=== PATIENT | female | born 1980 | race Caucasian/White ===

== ENCOUNTER 2019-01-08 18:08 | Inpatient (IN) | payer MEDICAID ==
[~2019-01-08] VITALS: Ht 160 cm; Wt 77.3 kg
[~2019-01-08 18:08] MED LIST: FERR27TA; PREN1TAB49
[2019-01-08 18:40] VITALS: Ht 160 cm; Wt 77.3 kg
[2019-01-08 18:41] VITALS: BP 111/58; PULSE 89; RESP 17
[2019-01-08] MEDS ORDERED: LACTATED RINGER'S 1,000 ML IV SCH (21:00)
[2019-01-08] MEDS ORDERED: GLUCOSE GEL 15 GRAM TUBE BUCCAL PRN (21:30)
[2019-01-08] MEDS ORDERED: GLUCAGON 1 MG INJ IM PRN (21:30)
[2019-01-08] MEDS ORDERED: DEXTROSE 50% 50 ML SYRINGE IV PRN ×2 (21:30)
[2019-01-08] MEDS ORDERED: GLUCOSE GEL 15 GRAM TUBE PO PRN ×2 (21:30)
--- NOTE | 2019-01-09 00:01 | TRIAGE ---
OB Triage Datetime Report Generated by CPN: 01/09/2019 00:01 Datetime: 01/08/2019 22:47 Stage of : Antepartum Monitor Mode: External US Comments: After several attempts to keep baby on the monitor. Datetime: 01/08/2019 22:14 Assessment Type: Admission Assessment Vaginal Bleeding: None Maternal Assessment Level of Consciousness: Fully Conscious DTR's/Clonus: DTRs 2+; No Clonus Headache: Denies Blurred Vision: No Respiratory Effort: Unlabored; Regular Rhythm; Equal Expansion Breath Sounds, Left: Clear and Equal Breath Sounds, Right: Clear and Equal Nausea/Vomiting: Denies RUQ Epigastric Pain: Denies Lower Extremities Edema: None Degree: None Upper Extremities Edema: None Degree: None Facial Edema: None Fall Risk Assessment History of Falling: (0) No Secondary Diagnosis: (0) No Ambulatory Aid: (0) Bedrest/Nurse Assist IV Therapy: (20) Yes Gait: (0) Normal/Bedrest/Immobile Mental Status: (0) Oriented to Own Ability Fall Score: 20 Fall Risk Score Definition: No Risk: No action required Labor Evaluation Frequency: 2.5-3 Duration (sec)2399: 40-70 Resting Tone [place]: Relaxed Heart Rate FHR Baseline Rate: 125 Variability: Moderate 6-25 bpm Accelerations: 15X15 Decelerations: None Category: Category I Pain Assessment Pain Scale: 2 Pain Presence: Intermittent Pain Type: Contraction Pain Location: Abdomen Pain Goal: 2 Datetime: 01/08/2019 22:10 Time of Arrival: 01/08/2019 21:45 EGA: 36.0 Arrived By: Ambulatory Arrived From: Home Datetime: 01/08/2019 21:38 Stage of : Antepartum Labor Evaluation Frequency: 2-4 Monitor Mode: External Duration (sec)2399: 50-70 Quality: Mild Pattern: Normal: <= 5 Contractions in 10 Minutes Resting Tone [place]: Relaxed Heart Rate FHR Baseline Rate: 135 Monitor Mode: External US Variability: Moderate 6-25 bpm Accelerations: 15X15 Decelerations: None Category: Category I Datetime: 01/08/2019 20:30 Labor Evaluation Frequency: IRREGULAR Monitor Mode: External Duration (sec)2399: 60-80 Quality: Mild Pattern: Normal: <= 5 Contractions in 10 Minutes Resting Tone [place]: Relaxed Heart Rate FHR Baseline Rate: 135 Monitor Mode: External US Variability: Moderate 6-25 bpm Accelerations: 15X15 Decelerations: None Category: Category I Datetime: 01/08/2019 19:31 Stage of : OB Triage Labor Evaluation Frequency: 2-7 Monitor Mode: External Duration (sec)2399: 30-60 Quality: Mild Pattern: Normal: <= 5 Contractions in 10 Minutes Resting Tone [place]: Relaxed Heart Rate FHR Baseline Rate: 135 Monitor Mode: External US Variability: Moderate 6-25 bpm Accelerations: 15X15 Decelerations: None Category: Category I Datetime: 01/08/2019 18:39 Assessment Type: Triage Time of Arrival: 01/08/2019 18:05 EGA: 36.0 Arrived By: Ambulatory Arrived From: Office Chief Complaint: a1dm, sent from md office for lab test and u/s Movement: Present Contractions: Denies/Absent Rupture of Membranes: Denies Vaginal Bleeding: None Vaginal Discharge: Denies Recent Sexual Intercouse: Denies Abdominal Trauma: Not Applicable Patient Complaints: None Time Provider Notified: 01/08/2019 20:10 Provider Notified: DR. JAMES Initial Plan: EFM, CALL OB Maternal Assessment Level of Consciousness: Fully Conscious DTR's/Clonus: DTRs 2+; No Clonus Headache: Denies Blurred Vision: No Respiratory Effort: Unlabored; Regular Rhythm; Equal Expansion Breath Sounds, Left: Clear and Equal Breath Sounds, Right: Clear and Equal Nausea/Vomiting: Denies RUQ Epigastric Pain: Denies Lower Extremities Edema: None Degree: None Upper Extremities Edema: None Degree: None Facial Edema: None Fall Risk Assessment History of Falling: (0) No Secondary Diagnosis: (0) No Ambulatory Aid: (0) Bedrest/Nurse Assist IV Therapy: (0) No Gait: (0) Normal/Bedrest/Immobile Mental Status: (0) Oriented to Own Ability Fall Score: 0 Fall Risk Score Definition: No Risk: No action required
[2019-01-09] MEDS: LACTATED RINGER'S 1,000 ML IV SCH ×4 (02:53→19:22)
[2019-01-09] MEDS ORDERED: ACCU-CHEK XX SCH (06:00)
[2019-01-09] MEDS: ACCU-CHEK XX SCH ×2 (07:30→19:45)
[2019-01-09] MEDS ORDERED: INSULIN ASPART [NOVOLOG] 3 ML PEN SC SCH (07:35)
[2019-01-09] MEDS ORDERED: PRENATAL VITAMIN PO SCH ×2 (09:00)
[2019-01-09] MEDS ORDERED: FERROUS SULFATE (EC) 325 MG TAB PO SCH (09:00)
--- NOTE | 2019-01-09 16:54 | HP ---
Date/Time of Note Date/Time of Note DATE: 01/09/19 TIME: 16:33 OB - History Hx of Present Free Text/Dictation Late entry note. Patient seen on 01/08/2019 39 years old -0-1-2 with single intrauterine at 36 weeks with OSVALDO of 02/05/2019 with diabetes. She was diagnosed early during current . 1 hour GTT done due to history of macrosomia. She did not have insurance and missed multiple visit after diagnosis of diabetes. [facility], referred to [facility] for further management of diabetes. She states good movement. She denies nausea, vomiting, shortness of breath, chest pain, heada veena, visual changes, vaginal bleeding or LOF. Risk factors: 1. Advanced maternal age 2. Diabetes 3. Previous delivery x1 4. History of macrosomia in previous (10 pounds) Chief Complaint: Diabetic management Estimated Due Date: February 05, 2019 : 4 Para: 2 Spontaneous : 1 Therapeutic : 0 Care: Limited Care Medical Complications: Other (Diabetes) Past Family/Social History * Past Medical, Surgical, Family and Obstetric Histories reviewed from chart. Blood Type: A+ Rubella: immune RPR/VDRL: Negative GBS Status: Unknown HBsAG: Negative OB Admission Exam Vital Signs Vital Signs Vital Signs Date Temp Pulse Resp B/P (MAP) Pulse Ox O2 O2 Flow FiO2 Time Delivery Rate 01/08/19 98.9 89 17 111/58 18:41 (75) Physical Exam HEENT: WNL Heart: Rhythm Normal Lungs: Clear Abdomen: WNL Extremities: Normal Reflexes: Normal Membranes: Intact Heart Rate: 140's Accelerations: Accelerations Present Decelerations: No Decelerations Varibility: Moderate Contractions on Admission: None Last 72 hourBlood Glucose Bedside Glucose - 72 Hours Test 01/09/19 00:51 01/09/19 07:29 01/09/19 11:54 01/09/19 13:06 Bedside 102 82 119 80 Glucose mg/dL (70-220) mg/dL (70-220) mg/dL (70-220) mg/dL (70-220) Test 01/09/19 15:36 Bedside 91 Glucose mg/dL (70-220) Last 72 hours Lab Results CBC & BMP 01/08/19 18:27 Liver Function Test 01/08/19 18:27 Alanine Aminotransferase (ALT/SGPT) 27 Albumin 3.5 Alkaline Phosphatase 112 Aspartate Amino Transf (AST/SGOT) 23 Direct Bilirubin 0.00 Total Protein 6.9 OB Assessment/Plan Other plan: 39 years old -0-1-2 with diabetes mellitus, AMA, previous delivery for macrosomia at 36 weeks - FHR: No sign of metabolic acidosis- Category I - Continuous EFM, toco - CBC, blood type and screen - CMP, uric acid, TSH, free T4 - 24-hour urine protein - Ultrasound for EFW and biophysical profile - Check fasting blood sugar and 2 hours postprandial - Insulin sliding scale with coverage of blood sugar with insulin if needed - Gr[employer] 7 [employer] 8 Teacher consult - Perinatology consult - Please see the orders - A+/Rubella: Immune - GBS: Done today, result is pending HIRAL JAMES Jan 09, 2019 16:46
--- NOTE | 2019-01-09 21:06 | DS ---
Date/Time of Note Date/Time of Note DATE: 01/09/19 TIME: 21:05 Obstetrical Discharge Record Final Diagnosis Final Diagnosis: not delivered Other Final Diagnosis 39 years old -0-1-2 with diabetes mellitus, AMA, previous delivery for macrosomia at 36 weeks and 1 day admitted for management of diabetes. She states good movement. FHR: No sign of metabolic acidosis- Category I . She has no uterine contractions. CBC, CMP, uric acid for having a baseline done which are within normal limits. She is collecting her urine for 24-hour urine protein and they creatinine clearance. Ultrasound performed, normal LARRY and biophysical profile 8 out of 8. Fasting blood sugar and 2-hour postprandial checked which were within normal limit. She was seen by simulation educator and senior manager quality assurance. The glucose meter, lancet and strips given to check FBS and 2 hours postprandial at home. If 24 hours urine protein is normal she may discharge home with follow-up with perinatologist, appropriate discharge instructions provided. I would like patient to have close follow-up with her primary physician or outpatient clinic in 1-2 days or return to triage for worsening symptoms or any other urgent concerns. Symptoms and sign of labor, preeclampsia, kick count discussed with patient, she voiced understanding. All of her questions answered. Condition on Discharge Physical Assessment Voiding: Yes Bowel Movement: Yes Patient Condition: Stable HIRAL JAMES Jan 09, 2019 21:06
== END 2019-01-09 22:48 | disposition home or self-care (01) | DRG 998 ==
LOC: OBT 18:08 → L-D 18:09 → OBT 20:55 → L-D 20:55
PROVIDERS: ADMIT Obstetrics & Gynecology; ATTEND Obstetrics & Gynecology
DX: O24.12 Pre-existing type 2 diabetes mellitus, in childbirth (principal); E11.9 Type 2 diabetes mellitus without complications; O09.523 Supervision of elderly multigravida, third trimester; Z3A.36 36 weeks gestation of pregnancy; Z37.0 Single live birth
CPT/HCPCS: 76815; 76818; 80053; 81001; 82575; 82962; 84156; 84443; 84560; 85025; 86850; 86900; 86901; G0463; J1815; J7120

== ENCOUNTER 2019-01-23 09:28 | Inpatient (IN) | payer MEDICAID ==
[~2019-01-23] VITALS: Ht 160 cm; Wt 77.2 kg
[~2019-01-23 09:28] MED LIST changes: +EPHEDrine 25 MG/5 ML SYG ONE; +OXYTOCIN 30 UNITS/LR 500 ML BAG IV ONE; +PHENYLephrine (100 MCG/ML) 10ML SYG ONE
[2019-01-23 09:49] VITALS: BP 114/69; PULSE 93; RESP 19; Ht 160 cm; Wt 77.2 kg
--- NOTE | 2019-01-23 11:44 | TRIAGE ---
OB Triage Datetime Report Generated by CPN: 01/23/2019 11:44 Datetime: 01/23/2019 11:24 Labor Evaluation Frequency: IRREGULAR Monitor Mode: External Duration (sec)2399: 60-100 Quality: Mild Pattern: Normal: <= 5 Contractions in 10 Minutes Resting Tone [place]: Relaxed Heart Rate FHR Baseline Rate: 130 Monitor Mode: External US Variability: Moderate 6-25 bpm Accelerations: 15X15 Decelerations: None Category: Category I Datetime: 01/23/2019 09:53 Stage of : OB Triage Assessment Type: Triage Maternal Assessment Level of Consciousness: Fully Conscious DTR's/Clonus: DTRs 2+; No Clonus Headache: Denies Blurred Vision: No Respiratory Effort: Unlabored; Regular Rhythm; Equal Expansion Breath Sounds, Left: Clear and Equal Breath Sounds, Right: Clear and Equal Nausea/Vomiting: Denies RUQ Epigastric Pain: Denies Lower Extremities Edema: None Degree: None Upper Extremities Edema: None Degree: None Facial Edema: None Fall Risk Assessment History of Falling: (0) No Secondary Diagnosis: (0) No Ambulatory Aid: (0) Bedrest/Nurse Assist IV Therapy: (0) No Gait: (0) Normal/Bedrest/Immobile Mental Status: (0) Oriented to Own Ability Fall Score: 0 Fall Risk Score Definition: No Risk: No action required Labor Evaluation Frequency: 0 Monitor Mode: External Pattern: Normal: <= 5 Contractions in 10 Minutes Resting Tone [place]: Relaxed Contraction Comments: NONE NOTED Heart Rate FHR Baseline Rate: 140 Monitor Mode: External US Variability: Moderate 6-25 bpm Accelerations: 15X15 Decelerations: None Category: Category I Datetime: 01/23/2019 09:52 Time of Arrival: 01/23/2019 09:24 EGA: 38.1 Arrived By: Ambulatory Arrived From: Home Chief Complaint: GDM Movement: Present Contractions: Denies/Absent Rupture of Membranes: Denies Vaginal Bleeding: None Vaginal Discharge: Denies Recent Sexual Intercouse: Denies Abdominal Trauma: Not Applicable Patient Complaints: Other Time Provider Notified: 01/23/2019 11:20 Initial Plan: NST BPP Datetime: 01/09/2019 22:36 Monitor Mode: External Pattern: Normal: <= 5 Contractions in 10 Minutes Heart Rate FHR Baseline Rate: 145 Monitor Mode: External US Variability: Moderate 6-25 bpm Accelerations: 15X15 Comments: unable to continuously monitor baby due to pt shifting in bed as she did not wish to be h ere longer and would be going home AMA. Datetime: 01/09/2019 22:00 Labor Evaluation Frequency: occasional Monitor Mode: External Duration (sec)2399: 40-60 Pattern: Normal: <= 5 Contractions in 10 Minutes Heart Rate FHR Baseline Rate: 140 Monitor Mode: External US Variability: Moderate 6-25 bpm Accelerations: 15X15 Decelerations: None Datetime: 01/09/2019 21:47 Monitor Mode: External US Datetime: 01/09/2019 21:00 Labor Evaluation Frequency: irregular Monitor Mode: External Duration (sec)2399: 50-90 Pattern: Normal: <= 5 Contractions in 10 Minutes Heart Rate FHR Baseline Rate: 140 Monitor Mode: External US Variability: Moderate 6-25 bpm Accelerations: 15X15 Decelerations: None Category: Category I Datetime: 01/09/2019 20:00 Labor Evaluation Frequency: IRREGULAR Monitor Mode: External Duration (sec)2399: 60-110 Pattern: Normal: <= 5 Contractions in 10 Minutes Heart Rate FHR Baseline Rate: 135 Monitor Mode: External US Variability: Moderate 6-25 bpm Accelerations: 15X15 Decelerations: None Category: Category I Datetime: 01/09/2019 19:44 Bedside Blood Glucose: 106 Datetime: 01/09/2019 19:40 Assessment Type: Ongoing Assessment Maternal Assessment Level of Consciousness: Fully Conscious DTR's/Clonus: DTRs 2+; No Clonus Headache: Denies Blurred Vision: No Respiratory Effort: Unlabored; Regular Rhythm; Equal Expansion Breath Sounds, Left: Clear and Equal Breath Sounds, Right: Clear and Equal Nausea/Vomiting: Denies RUQ Epigastric Pain: Denies Lower Extremities Edema: None Degree: None Upper Extremities Edema: None Degree: None Facial Edema: None Fall Risk Assessment History of Falling: (0) No Secondary Diagnosis: (0) No Ambulatory Aid: (0) Bedrest/Nurse Assist IV Therapy: (20) Yes Gait: (0) Normal/Bedrest/Immobile Mental Status: (0) Oriented to Own Ability Fall Score: 20 Fall Risk Score Definition: No Risk: No action required Pain Assessment Pain Scale: 0 Pain Presence: None/Denies Pain Type: N/A Datetime: 01/09/2019 19:21 Vaginal Exam Membrane Status: Intact Datetime: 01/09/2019 19:00 Labor Evaluation Frequency: 0 Monitor Mode: External Contraction Comments: pt states she does not feel any contractions. Heart Rate FHR Baseline Rate: 135 Monitor Mode: External US FHR Baseline Changes: No Baseline Change Variability: Moderate 6-25 bpm Accelerations: 15X15 Decelerations: None Category: Category I Datetime: 01/09/2019 18:00 Labor Evaluation Frequency: 0 Monitor Mode: External Heart Rate FHR Baseline Rate: 140 Monitor Mode: External US FHR Baseline Changes: No Baseline Change Variability: Moderate 6-25 bpm Accelerations: 15X15 Decelerations: None Category: Category I Datetime: 01/09/2019 17:49 Bedside Blood Glucose: 77 Datetime: 01/09/2019 17:00 Labor Evaluation Frequency: 2-7 Monitor Mode: External Duration (sec)2399: 50-60 Quality: Mild Pattern: Normal: <= 5 Contractions in 10 Minutes Resting Tone [place]: Relaxed Heart Rate FHR Baseline Rate: 135 Monitor Mode: External US FHR Baseline Changes: No Baseline Change Variability: Moderate 6-25 bpm Accelerations: 15X15 Decelerations: None Category: Category I Datetime: 01/09/2019 16:11 Comments: RN at bedside to find FHR. baby very active at this time. FHR audible at 140 bpm. Will co me back to pt room to adjust. Datetime: 01/09/2019 16:00 Labor Evaluation Frequency: 4-9 Monitor Mode: External Duration (sec)2399: 50-60 Quality: Mild Pattern: Normal: <= 5 Contractions in 10 Minutes Resting Tone [place]: Relaxed Heart Rate FHR Baseline Rate: 135 Monitor Mode: External US FHR Baseline Changes: No Baseline Change Variability: Moderate 6-25 bpm Accelerations: 15X15 Decelerations: None Category: Category I Pain Assessment Pain Scale: 0 Pain Presence: None/Denies Pain Type: N/A Pain Assessment Comments: pt does not feel pain or UCs Datetime: 01/09/2019 15:36 Bedside Blood Glucose: 91 Datetime: 01/09/2019 15:00 Labor Evaluation Frequency: 6-9 Monitor Mode: External Duration (sec)2399: 40-60 Quality: Mild Pattern: Normal: <= 5 Contractions in 10 Minutes Resting Tone [place]: Relaxed Heart Rate FHR Baseline Rate: 135 Monitor Mode: External US FHR Baseline Changes: No Baseline Change Variability: Moderate 6-25 bpm Accelerations: 15X15 Decelerations: None Category: Category I Pain Presence: None/Denies Pain Type: N/A Datetime: 01/09/2019 14:00 Labor Evaluation Frequency: 4-8 Monitor Mode: External Duration (sec)2399: 50-60 Quality: Mild Pattern: Normal: <= 5 Contractions in 10 Minutes Resting Tone [place]: Relaxed Heart Rate FHR Baseline Rate: 140 Monitor Mode: External US FHR Baseline Changes: No Baseline Change Variability: Moderate 6-25 bpm Accelerations: 15X15 Decelerations: None Category: Category I Pain Assessment Pain Scale: 0 Pain Presence: None/Denies Pain Type: N/A Pain Goal: 0 Datetime: 01/09/2019 13:05 Bedside Blood Glucose: 80 Datetime: 01/09/2019 13:00 Labor Evaluation Frequency: X2; irregular; q 14 min Monitor Mode: External Duration (sec)2399: 50-60 Quality: Mild Pattern: Normal: <= 5 Contractions in 10 Minutes Resting Tone [place]: Relaxed Heart Rate FHR Baseline Rate: 145 Monitor Mode: External US FHR Baseline Changes: No Baseline Change Variability: Moderate 6-25 bpm Accelerations: 15X15 Decelerations: None Category: Category I Pain Presence: None/Denies Pain Type: N/A Datetime: 01/09/2019 12:41 Temperature Route: Oral Datetime: 01/09/2019 12:00 Labor Evaluation Frequency: 0 Monitor Mode: External Contraction Comments: pt states she does noit feel any contractions. Heart Rate FHR Baseline Rate: 150 Monitor Mode: External US FHR Baseline Changes: No Baseline Change Variability: Moderate 6-25 bpm Accelerations: 15X15 Decelerations: None Category: Category I Datetime: 01/09/2019 11:00 Labor Evaluation Frequency: 4-6 Monitor Mode: External Duration (sec)2399: 60-70 Quality: Mild Pattern: Normal: <= 5 Contractions in 10 Minutes Resting Tone [place]: Relaxed Heart Rate FHR Baseline Rate: 135 Monitor Mode: External US FHR Baseline Changes: No Baseline Change Variability: Moderate 6-25 bpm Accelerations: 15X15 Decelerations: None Category: Category I Pain Presence: None/Denies Pain Type: N/A Datetime: 01/09/2019 10:00 Labor Evaluation Frequency: 5-6 Monitor Mode: External Duration (sec)2399: 70-90 Quality: Mild Pattern: Normal: <= 5 Contractions in 10 Minutes Resting Tone [place]: Relaxed Heart Rate FHR Baseline Rate: 130 Monitor Mode: External US FHR Baseline Changes: No Baseline Change Variability: Moderate 6-25 bpm Accelerations: 15X15 Decelerations: None Category: Category I Pain Presence: None/Denies Pain Type: N/A Datetime: 01/09/2019 09:00 Labor Evaluation Frequency: 3-6.5 Monitor Mode: External Duration (sec)2399: 60-80 Quality: Mild Pattern: Normal: <= 5 Contractions in 10 Minutes Resting Tone [place]: Relaxed Contraction Comments: pt does not feel her contractions Heart Rate FHR Baseline Rate: 135 Monitor Mode: External US FHR Baseline Changes: No Baseline Change Variability: Moderate 6-25 bpm Accelerations: 15X15 Decelerations: None Category: Category I Pain Assessment Pain Scale: 0 Pain Presence: None/Denies Pain Type: N/A Datetime: 01/09/2019 08:00 Maternal Assessment Level of Consciousness: Fully Conscious Headache: Denies Blurred Vision: No Breath Sounds, Left: Clear and Equal Breath Sounds, Right: Clear and Equal RUQ Epigastric Pain: Denies Facial Edema: None Labor Evaluation Frequency: 2-7 Monitor Mode: External Duration (sec)2399: 80-110 Quality: Mild Pattern: Normal: <= 5 Contractions in 10 Minutes Resting Tone [place]: Relaxed Contraction Comments: pt states she does not feel any pain or contractions. pt states positive feta l movement. Heart Rate FHR Baseline Rate: 130 Monitor Mode: External US FHR Baseline Changes: No Baseline Change Variability: Moderate 6-25 bpm Accelerations: 15X15 Decelerations: None Category: Category I Pain Assessment Pain Scale: 0 Pain Presence: None/Denies Pain Type: N/A Datetime: 01/09/2019 07:30 Assessment Type: Ongoing Assessment Maternal Assessment Level of Consciousness: Fully Conscious DTR's/Clonus: DTRs 2+; No Clonus Headache: Denies Blurred Vision: No Respiratory Effort: Unlabored; Regular Rhythm; Equal Expansion Breath Sounds, Left: Clear and Equal Breath Sounds, Right: Clear and Equal Nausea/Vomiting: Denies RUQ Epigastric Pain: Denies Lower Extremities Edema: None Upper Extremities Edema: None Facial Edema: None Bedside Blood Glucose: 82 Fall Risk Assessment History of Falling: (0) No Secondary Diagnosis: (0) No Ambulatory Aid: (0) Bedrest/Nurse Assist IV Therapy: (20) Yes Gait: (0) Normal/Bedrest/Immobile Mental Status: (0) Oriented to Own Ability Fall Score: 20 Fall Risk Score Definition: No Risk: No action required Datetime: 01/09/2019 06:54 Stage of : Antepartum Labor Evaluation Frequency: 2-5 Monitor Mode: External Duration (sec)2399: 50-80 Resting Tone [place]: Relaxed Heart Rate FHR Baseline Rate: 125 Monitor Mode: External US Variability: Moderate 6-25 bpm Accelerations: 15X15 Decelerations: None Category: Category I Pain Assessment Pain Scale: 0 Pain Presence: None/Denies Pain Type: N/A Pain Relief Measures: Comfort Measures Datetime: 01/09/2019 06:14 Stage of : Antepartum Labor Evaluation Frequency: 2-5 Monitor Mode: External Duration (sec)2399: 50-120 Resting Tone [place]: Relaxed Heart Rate FHR Baseline Rate: 120 Monitor Mode: External US Variability: Moderate 6-25 bpm Accelerations: 15X15 Decelerations: None Category: Category I Pain Presence: None/Denies Pain Type: N/A Pain Relief Measures: Comfort Measures Datetime: 01/09/2019 05:17 Stage of : Antepartum Labor Evaluation Frequency: 2-6 Monitor Mode: External Pattern: Normal: <= 5 Contractions in 10 Minutes Resting Tone [place]: Relaxed Heart Rate FHR Baseline Rate: 120 Monitor Mode: External US Variability: Moderate 6-25 bpm Accelerations: 15X15 Decelerations: None Category: Category I Pain Assessment Pain Scale: 0 Pain Presence: Intermittent Pain Type: Contraction Pain Location: Abdomen Pain Relief Measures: Comfort Measures Datetime: 01/09/2019 04:13 Stage of : Antepartum Labor Evaluation Frequency: 3-6 Monitor Mode: External Duration (sec)2399: 60-120 Resting Tone [place]: Relaxed Heart Rate FHR Baseline Rate: 120 Monitor Mode: External US Variability: Moderate 6-25 bpm Accelerations: 15X15 Decelerations: None Category: Category I Pain Assessment Pain Scale: 0 Pain Presence: None/Denies Pain Type: N/A Pain Relief Measures: Comfort Measures Datetime: 01/09/2019 03:30 Stage of : Antepartum Comments: Repeated attempts to keep baby on monitor. Audible movement. Datetime: 01/09/2019 03:15 Stage of : Antepartum Labor Evaluation Frequency: Occasional Monitor Mode: External Resting Tone [place]: Relaxed Heart Rate FHR Baseline Rate: 130 Monitor Mode: External US Variability: Moderate 6-25 bpm Accelerations: 15X15 Decelerations: None Category: Category I Comments: Repeated attempts to keep baby on the monitor. Audible movement. Pain Assessment Pain Scale: 0 Pain Presence: None/Denies Pain Type: N/A Pain Relief Measures: Comfort Measures Datetime: 01/09/2019 02:15 Stage of : Antepartum Labor Evaluation Frequency: None Monitor Mode: External Resting Tone [place]: Relaxed Heart Rate FHR Baseline Rate: 125 Monitor Mode: External US Variability: Moderate 6-25 bpm Accelerations: 15X15 Decelerations: None Category: Category I Pain Presence: None/Denies Pain Type: N/A Pain Relief Measures: Comfort Measures Datetime: 01/09/2019 01:15 Stage of : Antepartum Labor Evaluation Frequency: None Monitor Mode: External Resting Tone [place]: Relaxed Heart Rate FHR Baseline Rate: 125 Monitor Mode: External US Variability: Moderate 6-25 bpm Accelerations: 15X15 Decelerations: None Category: Category I Datetime: 01/09/2019 00:51 Bedside Blood Glucose: 102 Datetime: 01/09/2019 00:13 Stage of : Antepartum Monitor Mode: External Resting Tone [place]: Relaxed Contraction Comments: Difficult to assess due to patient position Heart Rate FHR Baseline Rate: 120 Monitor Mode: External US Variability: Moderate 6-25 bpm Accelerations: 15X15 Decelerations: None Category: Category I Pain Assessment Pain Scale: 0 Pain Presence: None/Denies Pain Type: N/A Pain Relief Measures: Comfort Measures Datetime: 01/08/2019 23:15 Stage of : Antepartum Monitor Mode: External Resting Tone [place]: Relaxed Contraction Comments: Difficult to assess due to patient position Heart Rate FHR Baseline Rate: 120 Monitor Mode: External US Variability: Moderate 6-25 bpm Accelerations: 15X15 Decelerations: None Category: Category I Comments: Temporary loss of contact with FHTs due to patient position while eating. Pain Assessment Pain Scale: 0 Pain Presence: None/Denies Pain Type: N/A Pain Relief Measures: Comfort Measures Datetime: 01/08/2019 22:14 Fall Score: 20 Fall Risk Score Definition: No Risk: No action required Datetime: 01/08/2019 22:13 Stage of : Antepartum Labor Evaluation Frequency: 2-4 Monitor Mode: External Duration (sec)2399: 40-60 Resting Tone [place]: Relaxed Heart Rate FHR Baseline Rate: 120 Monitor Mode: External US Variability: Moderate 6-25 bpm Accelerations: 15X15 Decelerations: None Category: Category I Pain Assessment Pain Scale: 0 Pain Presence: None/Denies Pain Type: N/A Pain Relief Measures: Comfort Measures Datetime: 01/08/2019 22:10 EGA: 36.0 Datetime: 01/08/2019 18:39 EGA: 36.0 Fall Score: 0 Fall Risk Score Definition: No Risk: No action required
[2019-01-23] MEDS ORDERED: LACTATED RINGER'S 1,000 ML IV SCH (13:31)
[2019-01-23] MEDS ORDERED: CEFAZOLIN 2 GM/50 ML (PMX) 50 ML IVPB SCH (14:00)
[2019-01-23] MEDS ORDERED: OXYTOCIN 30 UNITS/LR 500 ML IV PRN ×2 (14:00→23:30)
[2019-01-23] MEDS ORDERED: METHYLERGONOVINE 0.2 MG INJ IM PRN ×2 (14:00→23:30)
[2019-01-23] MEDS ORDERED: MISOPROSTOL 200 MCG TAB PR PRN ×2 (14:00→23:30)
[2019-01-23] MEDS ORDERED: CARBOPROST 250 MCG INJ IM PRN ×2 (14:00→23:30)
[2019-01-23] MEDS ORDERED: ONDANSETRON 4 MG INJ IV STA (15:10)
[2019-01-23] MEDS ORDERED: METOCLOPRAMIDE 10 MG INJ IV ONE (15:30)
[2019-01-23] MEDS ORDERED: morphine SULFATE/PF (10 MG/10 ML) INJ ONE (16:48)
--- NOTE | 2019-01-23 16:55 | HP ---
Date/Time of Note Date/Time of Note DATE: 01/23/19 TIME: 16:48 OB - History Hx of Present Free Text/Dictation 29 years old 4 para 2-0-0-2 with previous delivery at 38 weeks and 1 day presents presents for NST for A1 gestational diabetes and advanced maternal age. She states good movement. She denies nausea, vomiting, shortness of breath, chest pain, headache, visual changes, vaginal bleeding or LOF. Risk factors: -A1 gestational diabetes -Advanced maternal age Chief Complaint: She presents for NST and biophysical profile Estimated Due Date: February 05, 2019 : 4 Para: 2 Spontaneous : 1 Therapeutic : 0 Care: Limited Care Ultrasounds: Normal mid trimester US Obstetrical Complications: Gestational Diabetes Medical Complications: None Past Family/Social History * Past Medical, Surgical, Family and Obstetric Histories reviewed from chart. Blood Type: A+ Rubella: immune RPR/VDRL: Negative GBS Status: Negative HBsAG: Negative OB Admission Exam Vital Signs Vital Signs Vital Signs Date Temp Pulse Resp B/P (MAP) Pulse Ox O2 O2 Flow FiO2 Time Delivery Rate 01/23/19 98.7 93 19 114/69 Room Air 09:49 (84) Physical Exam HEENT: WNL Heart: Rhythm Normal Lungs: Clear Abdomen: WNL Extremities: Normal Membranes: Intact Heart Rate: 130's Accelerations: Accelerations Present Decelerations: No Decelerations Varibility: Moderate Contractions on Admission: < 5 Minutes Apart Intensity: Mild Last 72 hourBlood Glucose Bedside Glucose - 72 Hours Test 01/23/19 10:55 Bedside Glucose 84 mg/dL (70-220) Last 72 hours Lab Results CBC & BMP 01/23/19 12:40 OB Assessment/Plan Other plan: 39 years old -0-1-2 with advanced maternal age, A1 gestational diabetes, uterine leiomyoma and transfers presentation at 38 weeks and 1 day in labor - FHR: No sign of metabolic acidosis- Category I - Continuous EFM, toco - CBC, blood type and screen - Please see the orders - A+/Rubella: Immune - GBS: Negative The risk of delivery including but not limited to bleeding, infection, injury to other organs (bowel, bladder, ureter, vessels, nerves), injury to fetus, blood transfusion, blood transfusion related infection, risk of anesthesia, adhesion, needs for future , removal of uterus or any other indicated surgery was discussed with the patient and her family. She expressed understanding. All of her questions were answered. She signed the informed consent. PHYSICIAN'S VERIFICATION OF INFORMED CONSENT The patient and her where counseled regarding the procedure, its indications, risks, potential complications and alternatives and any questions were answered. Consent was obtained. PLANNED PROCEDURE/TREATMENT: delivery with possible using vacuum/forceps and any other indicated surgery PHYSICIAN'S VERIFICATION OF INFORMED CONSENT FOR BLOOD TRANSFUSION: There is a reasonable possibility that blood transfusion will be necessary as a result of the patient's procedure. I have discussed the following with the patient/patient's legal medical detail representative: An explanation of the benefits and risks of the transfusion of blood or blood products and the possible alternatives. All questions have been answered to the patient's satisfaction. INFORMED CONSENT:The patient has been informed of: The nature of the proposed care, treatment, services, medications, interventions or procedures. Potential benefits, risks or side effects, including potential problems related to recuperation. The likelihood of achieving care treatment and service goals. Reasonable alternatives to the proposed care, treatment and service. The relevant risks, benefits and side effects related to alternatives, including the possible results of not receiving care, treatment and services. When indicated, any limitations on the confidentiality of information learned from or about the patient. If appropriate, the risks, benefits and alternatives of the drugs to be used for sedation/analgesia including moderate sedation. If appropriate, patient has been provided information on the risks, benefits and alternatives to the transfusion of blood and/or blood products. If appropriate, patient has been provided information regarding the [place] [employer] Blood Act. HIRAL JAMES January 23, 2019 16:55
[2019-01-23] MEDS ORDERED: FENTAnyl 50 MCG/ML VIAL ONE ×3 (17:22→17:41)
[2019-01-23] MEDS: OXYTOCIN 30 UNITS/LR 500 ML IV SCH ×2 (18:25→22:57)
--- NOTE | 2019-01-23 18:50 | PREAC ---
Date/Time of Note Date/Time of Note DATE: 01/23/19 TIME: 18:49 Anesthesia Eval and Record Evaluation Time Pre-Procedure Interview DATE: 01/23/19 TIME: 18:49 Age 39 Sex female NPO: 8 hrs Preoperative diagnosis Planned procedure repeat c/s Past Medical History Past Medical History: None Surgery & Anesthesia Issues No known issue Meds Anticoagulation: No Beta David within 24 hr: No Reason Beta David not given: Pt. not on B-David Reported Medications Ferrous Sulfate (Iron) 1 Tab Tablet 09/07/10 Vits W-Ca,Fe,Fa(<1MG) () 1 Tab Tablet 09/07/10 Current Medications Lactated Ringer's 1,000 ml @ 125 mls/hr Q8H IV Last administered on 01/23/19at 13:59; Admin Dose 125 MLS/HR; Start 01/23/19 at 13:31 Cefazolin Sodium/ Dextrose 50 ml @ 100 mls/hr ONCE IVPB ; Start 01/23/19 at 14:00 Oxytocin/Lactated Ringer's 500 ml @ 125 mls/hr POST IV Last administered on 01/23/19at 18:25; Admin Dose 125 MLS/HR; Start 01/23/19 at 14:00 Oxytocin/Lactated Ringer's 500 ml @ 0 mls/hr ONCE PRN IV .VAGINAL BLEEDING; Start 01/23/19 at 14:00 Methylergonovine Maleate (Methergine) 0.2 mg ONCE PRN IM .VAGINAL BLEEDING; Start 01/23/19 at 14:00 Carboprost Tromethamine (Hemabate) 250 mcg ONCE PRN IM .VAGINAL BLEEDING; Start 01/23/19 at 14:00 Misoprostol (Cytotec) 1,000 mcg ONCE PRN SC .VAGINAL BLEEDING; Start 01/23/19 at 14:00 Meds reviewed: Yes Allergies Coded Allergies: No Known Allergies (Verified Allergy, Mild, 11/25/13) No Known Drug Allergies (Unverified Allergy, Unknown, 11/26/13) Allergies Reviewed: Yes Labs/Studies Labs Reviewed: Reviewed by anesthesiologist Result Diagram: 01/23/19 1240 Laboratory Tests 01/23/19 12:40 Blood Bank Test 01/23/19 12:40 Antibody Screen NEGATIVE Blood Type A POSITIVE Rh Immune Globulin Candidate NO test: Positive Pre-procedure Exam Last vitals Vital Signs Date Temp Pulse Resp B/P (MAP) Pulse Ox O2 O2 Flow FiO2 Time Delivery Rate 01/23/19 98.7 93 19 114/69 Room Air 09:49 (84) Airway: Adequate mouth opening, Adequate thyromental dist Mallampati: Mallampati II Teeth: Normal Lung: Normal Heart: Normal ASA Physical Status ASA physical status: 2 Emergency: None Planned Anesthetic Neuraxial: Spinal Planned Pain Management Sub-arachniod narcotics Pre-operative Attestations Prior to commencing anesthesia and surgery, the patient was re-evaluated, there was verification of: *The patient's identity *The results of appropriate recent lab work and preoperative vital signs *The above evaluation not changing prior to induction *Anesthetic plan, risk benefits, alternative and complications discussed with patient/family; questions answered; patient/family understands, accepts and wishes to proceed. MILES COLEMAN January 23, 2019 18:50
[2019-01-23] MEDS ORDERED: KETOROLAC 30 MG INJ IV PRN (19:00)
[2019-01-23] MEDS ORDERED: METOCLOPRAMIDE 10 MG INJ IV PRN (19:00)
[2019-01-23] MEDS ORDERED: ALBUTEROL 0.083% (NEB) 2.5 MG/3 ML AMP HHN PRN (19:00)
[2019-01-23] MEDS ORDERED: FENTAnyl 50 MCG/ML VIAL IV PRN ×2 (19:00)
[2019-01-23] MEDS ORDERED: NALOXONE (0.4 MG/ML) INJ IV PRN (19:00)
[2019-01-23] MEDS ORDERED: ONDANSETRON 4 MG INJ IV PRN ×2 (19:00)
[2019-01-23] MEDS ORDERED: HYDROmorphONE 1 MG/5 ML IV SYRINGE IV PRN ×3 (19:00)
[2019-01-23] MEDS ORDERED: DIPHENHYDRAMINE 50 MG INJ IV PRN ×2 (19:00)
[2019-01-23] MEDS ORDERED: HYDROmorphONE 0.5 MG/0.5 ML SYG IV PRN ×2 (19:00)
--- NOTE | 2019-01-23 19:41 | PAC ---
Date/Time of Note Date/Time of Note DATE: 01/23/19 TIME: 19:41 Post-Anesthesia Notes Post-Anesthesia Note Last documented vital signs Vital Signs Date Temp Pulse Resp B/P (MAP) Pulse Ox O2 O2 Flow FiO2 Time Delivery Rate 01/23/19 98.7 93 19 114/69 Room Air 09:49 (84) Activity: WNL Respiratory function: WNL Cardiovascular function: WNL Mental status: Baseline Pain reasonably controlled: Yes Hydration appropriate: Yes Nausea/Vomiting absent: Yes MILES COLEMAN January 23, 2019 19:41
[2019-01-23] MEDS: KETOROLAC 30 MG INJ IV PRN (20:46)
[2019-01-23 23:00] VITALS: BP 124/60; PULSE 54; RESP 19
--- NOTE | 2019-01-23 23:12 | OPR ---
Operative Report Planned Procedure Procedure date January 23, 2019 Procedure(s) 1. Repeat low transverse delivery 2. Lysis of adhesion Performed by see signature line Gas Brazer: RYAN VALENZUELA MD Anesthesiologist: MILES COLEMAN Pre-procedure diagnosis 39 years old -0-1-2 with advanced maternal age, A1 gestational diabetes, uterine leiomyoma and transverse presentation at 38 weeks and 1 day in labor [id number] Anesthesia Type: [id number] spinal Post-Procedure Post-procedure diagnosis 39 years old -0-1-2 with advanced maternal age, A1 gestational diabetes, multiple uterine leiomyoma as noted at finding and transverse presentation at 38 weeks and 1 day in labor Findings 1. Enlarged uterus with multiple uterine leiomyoma. There was one 5x6 cm intramural uterine leiomyoma adjacent to the right side of lower uterine segment. There was is a 3 x 4 cm subserosal fundal uterine leiomyoma. There was two 2x3 and 3x4 cm intramural uterine leiomyoma posterior posterior of uterus. There were three 1x1 cm uterine leiomyoma on posterior wall of uterus 2. Normal uterus, fallopian tubes and ovaries 2. Viable male in transverse presentation. 8 at one minute and 9 in 5 minutes. Weight: 8 pounds 3 ounces - 3725 g. Time of delivery: 17:21 3. Placenta with three vessel cord 4. Amniotic fluid - Clear Estimated Blood Loss: 600 - 700 mls Specimen(s) none Grafts/Implant(s) none Complication(s) none Pt Condition post procedure: stable Disposition: PACU Procedure Description INDICATION AND HISTORY: A 39 years old -0-1-2 with advanced maternal age, A1 gestational diabetes, uterine leiomyoma and transverse presentation at 38 weeks and 1 day in labor. The risk of delivery including but not limited to bleeding, infection, injury to other organs (bowel, bladder, ureter, vessels, nerves), injury to fetus, blood transfusion, blood transfusion related infection, risk of anesthesia, adhesion, needs for future , removal of uterus or any other indicated surgery was discussed with the patient and her family. She expressed understanding. All of her questions were answered. She signed the informed consent. DESCRIPTION OF OPERATION: The patient was taken to the operating room, where she was identified and the procedure was verified. The patient received two gram of Ancef 30 minutes prior to surgery. Spinal anesthesia was placed. The patient placed in the dorsal supine position with a left tilt. The heart rate was 134 bpm. The patient was then prepped and draped in the normal sterile fashion. A Pfannenstiel skin incision was made and carried down to the fascia with Bovie. The fascia was incised in the midline and the fascial incision was carried laterally with Chin scissors. The superior portion of the fascial incision was then grasped with Mik clamps and tented up and dissected off the underlying rectus muscle with sharp dissection. The lower portion of the fascial incision was then made in a similar fashion. The rectus muscle was and the peritoneum was entered. The peritoneal incision was then stretched and a bladder blade was inserted. Then, an incision was made in the lower uterine segment in a transverse fashion with a knife and extended bluntly. The was in transverse presentation, delivered atraumatically in double footling breech presentation with the above findings. The umbilical cord was clamped and cut. The neonatology resuscitation team was present and the baby was handed to them. A cord blood sample was obtained for further evaluation. The placenta and membrane, which appeared normal were Removed. The uterus was exteriorized and cleared of all clot and debris. The uterus was then closed in a two layer fashion with 0-Monocryl. As noted above there was a 6 x 7 cm intramural leiomyoma adjacent to the right side of lower uterine segment. At the time of closure, hemostasis was noted. Fibrillar placed under the incision. Minimal bleeding from the fundal submucosal fibroid controlled with cautery. Surgicel placed on his fibroid. Then the gutters were irrigated. The peritoneum was reapproximated with 3-0 Vicryl. The muscle was reapproximated with 3-0 Vicryl. The fascia was approximated with 0-Vicryl in a running fashion. *The subcutaneous tissue was re approximated with 3-0 vicryl. The skin was closed with 4-0 Monocryl. All instruments, sponges and needle counts were correct x3. The patient tolerated the procedure well. She transferred to the recovery room in stable condition. HIRAL JAMES January 23, 2019 23:06
[2019-01-23] MEDS ORDERED: OXYTOCIN 30 UNITS/LR 500 ML IV SCH (23:28)
[2019-01-23] MEDS ORDERED: LANOLIN HPA 1 PKT TOP PRN (23:30)
[2019-01-23] MEDS ORDERED: METHYLERGONOVINE 0.2 MG TAB PO PRN (23:30)
[2019-01-24] MEDS: DEXTROSE 5%-LR 1,000 ML IV SCH ×3 (02:39→15:28)
[2019-01-24 04:00] VITALS: BP 110/58; PULSE 60; RESP 19
[2019-01-24 08:45] VITALS: BP 114/63; PULSE 73; RESP 18
[2019-01-24] MEDS: KETOROLAC 30 MG INJ IV PRN ×2 (10:47→16:36)
[2019-01-24] MEDS: SENNA/DOCUSATE NA (8.6MG/50MG) TAB PO SCH ×2 (10:48→22:58)
[2019-01-24] MEDS ORDERED: DIPHTH/TET/ACEL PERTUSS (ADULT) 0.5 ML VIAL IM* ONE (11:00)
[2019-01-24 12:15] VITALS: BP 102/60; PULSE 72; RESP 16
[2019-01-24 16:38] VITALS: BP 114/61; PULSE 79; RESP 17
--- NOTE | 2019-01-24 17:44 | PN ---
Date/Time of Note Date/Time of Note DATE: 01/24/19 TIME: 17:42 OB Subjective Subjective Subjective Patient denies any nausea vomiting. Has not been out of the bed yet. Asencio is a still in. SCDs around. Reports pain in the incision. Breast- feeding. OB Objective Objective Objective Appearance: Alert and oriented x4 does not appear to be in any acute distress Abdomen: Soft, fundus firm and palpable at the level of umbilicus. Appropriate tenderness in the incision noted Extremities: No calf tenderness, no click no edema no cord palpable Breast: No evidence of mastitis or fissure or engorgement CBC & BMP 01/23/19 12:40 01/24/19 04:48 OB Assessment/Plan Other Assessment: Status post primary low transverse section Postop day #1 Mild anemia, postop, asymptomatic Routine postop care Ambulation, Start iron when passed flatus KARI SANTAMARIA MD January 24, 2019 17:44
[2019-01-24] MEDS ORDERED: HYDROCODONE/APAP (5/325) TAB PO PRN (19:00)
[2019-01-24 20:00] VITALS: BP 128/65; PULSE 78; RESP 18
[2019-01-24] MEDS: IBUPROFEN 800 MG TAB PO SCH (21:48)
[2019-01-24] MEDS: HYDROCODONE/APAP (5/325) TAB PO SCH (22:36)
--- NOTE | 2019-01-24 22:59 | DELSUM ---
Delivery Summary A-C Datetime Report Generated by CPN: 01/24/2019 22:59 DELIVERY PERSONNEL Wool Brusher: ÁNGEL, LORAINE/STEVENSON ZENAIDAI MATERNAL INFORMATION Delivery Anesthesia: Spinal Medications in Delivery: SEE ANESTHESIA RECORD Delivery QBL (ml): 600 Placenta Cultured: No Maternal Complications: Other Other Maternal Complications: GDM LABOR SUMMARY EDC: 02/05/2019 00:00 No. Babies in Womb: 1 Attempted: No Labor Anesthesia: None LABOR INFORMATION Reason for Induction: Not Applicable Oxytocin: N/A Group B Beta Strep: Negative Antibiotics # of Doses: 1 Antibiotics Time of Last Dose: 01/23/2019 17:05 Steroids Given: None Reason Steroids Not Administered: Not Applicable MEMBRANES Membranes Rupture Method: Artificial Rupture of Membranes: 01/23/2019 17:18 Length of Rupture (hr): 0.05 Amniotic Fluid Color: Clear Amniotic Fluid Amount: Moderate Amniotic Fluid Odor: None STAGES OF LABOR Stage 3 hr: 0 Stage 3 min: 1 CSECTION DELIVERY Primary Indication: REPEAT SECTION Secondary Indication: Repeat Elective CSection Urgency: Elective CSection Incidence: Repeat Labor: N/A Elective: N/A CSection Incision: Lower Uterine Transverse BABY A INFORMATION Infant Delivery Date/Time: 01/23/2019 17:21 Method of Delivery: Born in Route : No : N/A Forceps: N/A Vacuum Extraction: N/A Shoulder Dystocia : N/A SHOULDER DYSTOCIA BABY A Infant Delivery Date/Time: 01/23/2019 17:21 PRESENTATION/POSITION BABY A Presentation: Breech Cephalic Presentation: N/A Breech Presentation: Double Footling PLACENTA INFORMATION BABY A Placenta Delivery Time : 01/23/2019 17:22 Placenta Method of Delivery: Manual Removal Placenta Status: Delivered SCORES BABY A Heart Rate 1 min: >100 bpm Resp Effort 1 min: Good Cry Reflex Irritability 1 min: Cough/Sneeze/Pulls Away Muscle Tone 1 min: Active Motion Color 1 min: Blue/Pale Resuscitation Effort 1 min: Tactile Stimulation SCORE 1 MIN: 8 Heart Rate 5 min: >100 bpm Resp Effort 5 min: Good Cry Reflex Irritability 5 min: Cough/Sneeze/Pulls Away Muscle Tone 5 min: Active Motion Color 5 min: Body [place], Extremit Blue Resuscitation Effort 5 min: Tactile Stimulation SCORE 5 MIN: 9 INFANT INFORMATION BABY A Gestational Age at Delivery: 38.1 Gestational Status: Early Term- 37- 38.6 Weeks Infant Outcome : Liveborn Infant Condition : Stable Sex: Male IDENTIFICATION/MEDS BABY A ID Band Number: [id number] ID Band Location: Right Leg; Left Arm Sensor Applied: Yes Sensor Number: [id number] Sensor Location : Cord Clamp Vitamin K Given : Not Given Erythromycin Given: Not Given WEIGHT/LENGTH BABY A Infant Birthweight (gm): 3725 Weight (lb): 8 Infant Weight (oz): 3 Infant Length (in): 20.50 Infant Length (cm): 52.07 CORD INFORMATION BABY A No. Cord Vessels: 3 Nuchal Cord : Around Neck x1, Loose Cord Blood Taken: Yes Suction: Mouth; Nose ASSESSMENT BABY A Complications: None Physical Findings at Delivery: Within Normal Limits Infant Respirations: Appears Normal Employee Relations Manager/ALS Called : Yes Infant Care By: RT/RN Transferred To: Remains with Mother
[2019-01-25 03:34] VITALS: BP 107/51; PULSE 71; RESP 18
[2019-01-25] MEDS: IBUPROFEN 800 MG TAB PO SCH ×3 (05:31→21:45)
[2019-01-25] MEDS: HYDROCODONE/APAP (5/325) TAB PO SCH ×4 (05:31→21:44)
[2019-01-25 08:00] VITALS: BP 118/55; PULSE 64; RESP 18
[2019-01-25] MEDS: SENNA/DOCUSATE NA (8.6MG/50MG) TAB PO SCH ×2 (09:23→21:45)
[2019-01-25 15:32] VITALS: BP 131/59; PULSE 76; RESP 18
[2019-01-25] MEDS: MAGNESIUM HYDROXIDE 30ML CUP PO PRN (18:10)
[2019-01-25 20:10] VITALS: BP 124/64; PULSE 67; RESP 17
[2019-01-26 03:34] VITALS: BP 105/62; PULSE 68; RESP 17
[2019-01-26] MEDS: IBUPROFEN 800 MG TAB PO SCH ×2 (05:44→13:36)
[2019-01-26] MEDS: HYDROCODONE/APAP (5/325) TAB PO SCH ×2 (05:44→14:19)
[2019-01-26 08:50] VITALS: BP 123/74; PULSE 62; RESP 16
[2019-01-26] MEDS ORDERED: MEASLES,MUMPS,RUBELLA VACCINE INJ SC* ONE (09:00)
[2019-01-26] MEDS ORDERED: DIPHTH/TET/ACEL PERTUSS (ADULT) 0.5 ML VIAL IM* ONE (09:00)
[2019-01-26] MEDS: SENNA/DOCUSATE NA (8.6MG/50MG) TAB PO SCH (09:18)
[2019-01-26] MEDS: MAGNESIUM HYDROXIDE 30ML CUP PO PRN (09:18)
[2019-01-26] MEDS ORDERED: BISACODYL 10 MG SUPP PR ONE (13:30)
[2019-01-26 15:30] VITALS: BP 130/71; PULSE 76; RESP 18
--- NOTE | 2019-01-27 13:13 | DS ---
Date/Time of Note Date/Time of Note DATE: 01/27/19 TIME: 13:11 Obstetrical Discharge Record Final Diagnosis Final Diagnosis: Term delivered Other Final Diagnosis Postop day #3 Status pos repeat Patient stable and afebrile Patient is ambulating, tolerating regular diet, voiding and positive flatus Vital signs stable Abdomen soft, fundus firm Incision clean, dry, intact Extremities nontender Assessment and plan Patient stable and doing well Plan to discharge home Patient instructed to follow-up with her own [facility] [employer] in 2 and 6 weeks Condition on Discharge Physical Assessment Last Vitals: VS - Last 72 Hours, by Label Date Temp Pulse Resp B/P (MAP) Pulse Ox O2 O2 Flow FiO2 Time Delivery Rate 01/26/19 98.4 76 18 130/71 Room Air 15:30 (90) 01/26/19 98.3 62 16 123/74 Room Air 08:50 (90) 01/26/19 98.2 68 17 105/62 Room Air 03:34 (76) 01/25/19 97.8 67 17 124/64 Room Air 20:10 (84) 01/25/19 98.5 76 18 131/59 Room Air 15:32 (83) 01/25/19 98.2 64 18 118/55 Room Air 08:00 (76) 01/25/19 97.8 71 18 107/51 Room Air 03:34 (69) 01/24/19 98.9 78 18 128/65 Room Air 20:00 (86) 01/24/19 97.8 79 17 114/61 98 Room Air 16:38 (78) Voiding: Yes Bowel Movement: Yes Breast: Soft, non-tender Fundus: Firm Calf Tenderness: No Patient Condition: Good Copies To: CC: HIRAL JAMES ; KENISHA CANTU MD January 27, 2019 13:13
--- NOTE | 2019-01-27 19:05 | DELSUM ---
Delivery Summary A-C Datetime Report Generated by CPN: 01/27/2019 19:05 DELIVERY PERSONNEL Mechanic General Operational Test: ÁNGEL, LORAINE/STEVENSON ZENAIDAI MATERNAL INFORMATION Delivery Anesthesia: Spinal Medications in Delivery: SEE ANESTHESIA RECORD Delivery QBL (ml): 600 Placenta Cultured: No Maternal Complications: Other Other Maternal Complications: GDM LABOR SUMMARY EDC: 02/05/2019 00:00 No. Babies in Womb: 1 Attempted: No Labor Anesthesia: None LABOR INFORMATION Reason for Induction: Not Applicable Oxytocin: N/A Group B Beta Strep: Negative Antibiotics # of Doses: 1 Antibiotics Time of Last Dose: 01/23/2019 17:05 Steroids Given: None Reason Steroids Not Administered: Not Applicable MEMBRANES Membranes Rupture Method: Artificial Rupture of Membranes: 01/23/2019 17:18 Length of Rupture (hr): 0.05 Amniotic Fluid Color: Clear Amniotic Fluid Amount: Moderate Amniotic Fluid Odor: None STAGES OF LABOR Stage 3 hr: 0 Stage 3 min: 1 CSECTION DELIVERY Primary Indication: REPEAT SECTION Secondary Indication: Repeat Elective CSection Urgency: Elective CSection Incidence: Repeat Labor: N/A Elective: N/A CSection Incision: Lower Uterine Transverse BABY A INFORMATION Infant Delivery Date/Time: 01/23/2019 17:21 Method of Delivery: Born in Route : No : N/A Forceps: N/A Vacuum Extraction: N/A Shoulder Dystocia : N/A SHOULDER DYSTOCIA BABY A Infant Delivery Date/Time: 01/23/2019 17:21 PRESENTATION/POSITION BABY A Presentation: Breech Cephalic Presentation: N/A Breech Presentation: Double Footling PLACENTA INFORMATION BABY A Placenta Delivery Time : 01/23/2019 17:22 Placenta Method of Delivery: Manual Removal Placenta Status: Delivered SCORES BABY A Heart Rate 1 min: >100 bpm Resp Effort 1 min: Good Cry Reflex Irritability 1 min: Cough/Sneeze/Pulls Away Muscle Tone 1 min: Active Motion Color 1 min: Blue/Pale Resuscitation Effort 1 min: Tactile Stimulation SCORE 1 MIN: 8 Heart Rate 5 min: >100 bpm Resp Effort 5 min: Good Cry Reflex Irritability 5 min: Cough/Sneeze/Pulls Away Muscle Tone 5 min: Active Motion Color 5 min: Body [place], Extremit Blue Resuscitation Effort 5 min: Tactile Stimulation SCORE 5 MIN: 9 INFANT INFORMATION BABY A Gestational Age at Delivery: 38.1 Gestational Status: Early Term- 37- 38.6 Weeks Infant Outcome : Liveborn Infant Condition : Stable Sex: Male IDENTIFICATION/MEDS BABY A ID Band Number: [id number] ID Band Location: Right Leg; Left Arm Sensor Applied: Yes Sensor Number: [id number] Sensor Location : Cord Clamp Vitamin K Given : Not Given Erythromycin Given: Not Given WEIGHT/LENGTH BABY A Infant Birthweight (gm): 3725 Weight (lb): 8 Infant Weight (oz): 3 Infant Length (in): 20.50 Infant Length (cm): 52.07 CORD INFORMATION BABY A No. Cord Vessels: 3 Nuchal Cord : Around Neck x1, Loose Cord Blood Taken: Yes Suction: Mouth; Nose ASSESSMENT BABY A Complications: None Physical Findings at Delivery: Within Normal Limits Infant Respirations: Appears Normal Truck Engine Technician/ALS Called : Yes Infant Care By: RT/RN Transferred To: Remains with Mother
== END 2019-01-26 19:05 | disposition home or self-care (01) | DRG 788 ==
LOC: L-D 09:28 → OBT 09:28 → L-D 11:20 → MS1 23:00 → PP1 01-25 16:50
PROVIDERS: ADMIT Obstetrics & Gynecology; ATTEND Obstetrics & Gynecology
PROC: 10D00Z1 Extraction of Products of Conception, Low, Open Approach (ICD-10-PCS; principal; 2019-01-23 15:00)
DX: O32.2XX0 Maternal care for transverse and oblique lie, not applicable or unspecified (principal); O24.420 Gestational diabetes mellitus in childbirth, diet controlled; O34.13 Maternal care for benign tumor of corpus uteri, third trimester; O34.211 Maternal care for low transverse scar from previous cesarean delivery; D25.1 Intramural leiomyoma of uterus; Z3A.38 38 weeks gestation of pregnancy; Z37.0 Single live birth
CPT/HCPCS: 76815; 76818; 82962; 85025; 85610; 85730; 86592; 86850; 86900; 86901; 87340; 90715; 99464; G0463; J0690; J1885; J2274; J2370; J2405; J2590; J2765; J3010; J7120; J7121